=== PATIENT | male | born 1940 | race Caucasian/White ===

== ENCOUNTER → 2024-03-25 13:01 | Outpatient (REF) | payer OTHER, SELFPAY | LOC: RAD 13:01 | PROVIDERS: ATTENDING PHYSICIAN Surgery; FAMILY PHYSICIAN Internal Medicine | DX: N40.1 Benign prostatic hyperplasia with lower urinary tract symptoms (principal) | CPT/HCPCS: 76770 ==

== ENCOUNTER → 2025-03-01 13:10 | Outpatient (REF) | payer OTHER, SELFPAY | LOC: PAVMRI 13:10 | PROVIDERS: ATTENDING PHYSICIAN Neurological Surgery; FAMILY PHYSICIAN Internal Medicine | DX: G93.49 Other encephalopathy (principal) | CPT/HCPCS: 70553; A9575 ==

== ENCOUNTER → 2025-07-05 13:08 | Outpatient (REF) | payer OTHER, SELFPAY | LOC: RAD 13:08 | PROVIDERS: ATTENDING PHYSICIAN Surgery; FAMILY PHYSICIAN Internal Medicine | DX: N21.0 Calculus in bladder (principal) | CPT/HCPCS: 76770 ==

== ENCOUNTER 2025-07-05 21:17 | Inpatient (IN) | payer OTHER, SELFPAY ==
[2025-07-05] VITALS (11 sets, daily range): BP systolic 117–193; BP diastolic 72–136; BMI 31.0; BMI 29.6
[2025-07-05 16:19] LABS: Hematocrit 41.5 % (39.0-52.0); Hemoglobin 13.7 g/dL (13.0-18.0); Mean Corp Hgb Conc. 33.0 g/dL (33.0-37.0); Mean Corpuscular Volume 86.8 fL (80.0-94.0); Nucleated Red Blood Cells % 0 % (-); Platelet Count 235 10^3/uL (130-400); Red Cell Dist. Width 14.6 % (11.5-14.5)
[2025-07-05 16:26] LABS: INR 1.16; PT 15.1 Sec (11.4-14.6)
[2025-07-05 16:27] LABS: APTT 28.4 Sec (23.4-35.0)
[2025-07-05 16:39] LABS: ALT (SGPT) 22 U/L (0-50); AST (SGOT) 25 U/L (17-59); Albumin 4.5 g/dl (3.5-5.0); Alkaline Phosphatase 105 U/L (38-126); Blood Urea Nitrogen 14 mg/dl (9-20); Calcium 9.8 mg/dl (8.4-10.2); Carbon Dioxide 23 mmol/L (22-30); Chloride 106 mmol/L (98-107); Estimated Creatinine Clearance 71 ml/min; Glucose 135 mg/dl (70-99); Potassium 3.2 mmol/L (3.5-5.1); Sodium 140 mmol/L (135-145); Total Protein 6.8 g/dl (6.3-8.2); eGFR > 60.00
[2025-07-05 17:03] LABS: Urine Character Clear (Clear)
[2025-07-05 17:36] LABS: Urine White Cell 0-2 /HPF (0-5)
[2025-07-05] MEDS: CARDIZEM 20 MG IV (17:51)
--- NOTE | 2025-07-05 17:51 | ED.GENMED ---
History of Present Illness
<Vj Noyola MD, Resident - Last Filed: 07/05/25 20:19>
General
Chief Complaint: Weakness
Source: patient
Exam Limitations: none
Time Seen by Provider: 07/05/25 16:23
Travel History
Have you traveled to any high risk areas for coronavirus over the past 14 days?: No
Have you had any contact with someone who has COVID-19?: No
History of Present Illness
History of Present Illness:
Mr. De La Torre is an 84-year-old male with HTN, A-fib, brain tumor (getting follow-up regularly), constipation, anxiety, depression, and bilateral hearing impairment who presents from home via ambulance for ongoing leg weakness and an episode of SOB on
exertion with dizziness that occurred around 11 AM this morning. He states that this morning around 11 AM/12 PM, he was walking with his walker when he started to feel short of breath and dizzy. Around this time, he felt that his knees were bending
beneath him, with right leg weakness greater than left. He denies chest pain, syncope, fall, recent infection, palpitations, sweating, N/V, or vision changes. He states that he sat down and took in longer breaths which relieved him. He decided to
come into the ED later today via ambulance as he was worried about what was going on. Of note, he is in A-fib with RVR on the monitor during the time of history collection. However, he denies any symptoms of SOB, palpitations, or dizziness while
at rest. He follows with Dr. Martínez for cardiology. This history was confirmed with his son via phone. Mr. De La Torre lives with his son and daughter at home. Family states that he is quite deconditioned and does not keep up with PT exercises nor
daily ambulation, despite them urging him to do so.
Past History
<Vj Noyola MD, Resident - Last Filed: 07/05/25 20:19>
Past History
ED Past Medical History: Arrthythmia, HTN, Hypercholesterolemia, Psychiatric (Anxiety) and Other (Chronic low back pain); Negative CAD, IDDM or NIDDM
ED Past Surgical History: None
Social History
Tobacco: Non-smoker
Alcohol: None
Drug: None
Personal:
Living: with family
Employment: Retired
Family History
Family History: Other (Noncontributory)
Review of Systems
<Vj Noyola MD, Resident - Last Filed: 07/05/25 20:19>
Review of Systems
Other source history: family (son, Rodrick)
Neurological: Reports weakness
Phy Exam
<Vj Noyola MD, Resident - Last Filed: 07/05/25 20:19>
General Physical Exam
General Presentation: well appearing and no apparent distress
General age: appears stated age
General Skin: warm
General Habitus: normal
General Mental: alert
ENT Exam
ENT Exam: EOMI
Cardiovascular Exam
Cardiovascular Exam: irregularly irregular and tachycardia (130-150s)
Pulmonary Exam
Pulmonary Exam: lungs clear and no respiratory distress
Gastrointestinal Exam
Gastrointestinal Exam: normal bowel sounds, non tender, soft and non distended
Neurological Exam
Neurological Exam: alert, oriented x3 and motor weakness (legs, bilaterally 3/5 strength)
Musculoskeletal Exam
Musculoskeletal Exam: full ROM and no edema
Skin Exam
Skin Exam: normal color and no rash
Course
<Vj Noyola MD, Resident - Last Filed: 07/05/25 20:19>
Orders/Labs/Results
Orders:
Orders
07/05/25 15:51
Electrocardiogram (*1) Urgent
Reason for Study: Fatigue / Weakness
EKG- Treatment ONCE
07/05/25 16:05
CMP [Comprehensive Metabolic Panel] Urgent
Complete Blood Count/With Diff Urgent
PT/INR [Prothrombin Time] Urgent
PTT Urgent
07/05/25 16:39
Urinalysis Reflex To Culture Urgent
Date Specimen was Collected: 07/05/25
Time Specimen was Collected: 16:27
Urine Microscopic Reflex Cult Urgent
07/05/25 17:28
Diltiazem HCl [Cardizem] 20 mg IV NOW STA
07/05/25 17:31
Diltiazem 125 mg/125 ml Nss [Cardizem] 125 mg in 125 ml IV NOW
Initial dose in mg/hr, then titrate:: 5
Titrate to keep:: Heart rate 80-100 bpm
Titrate by mg/hr:: 5 mg/hr
Frequency of titrations (minutes):: 15
Maximum dose in mg/hr:: 15
07/05/25 17:49
BMP [Basic Metabolic Panel] Urgent
BNP [NT-proBNP] Urgent
Magnesium Urgent
TSH Reflex To Free T4 Urgent
Comment: ADD ON
Troponin I Urgent
07/05/25 17:51
Potassium Chloride [KCl] 40 meq PO NOW STA
07/05/25 18:25
Electrocardiogram (*1) Urgent
Reason for Study: Bradycardia / Tachycardia
EKG- Treatment ONCE
07/05/25 18:48
Electrocardiogram (*1) Urgent
Reason for Study: Palpitations
EKG- Treatment ONCE
07/05/25 19:03
CR Chest - 2 Views Urgent
Comment:
Reason For Exam: sob
07/05/25 20:45
Admit/Transfer Patient As Directed
Co-Sign Provider:
Level of Care: Inpatient admission
Assign to:: IVU
Physician / Group: Mario Alberto
Diagnosis: A-Fib
Reason for Hospitalization: Cardizem drip
Expected length of stay greater than two midnights?: Yes
ELOS- Estimated Length of Stay in days: 3
I certify the patient meets the requirements for IP care: Yes
PRN Pain Medication Management As Directed
May give lesser potent ordered pain med per pt: Yes
preference::
Protocol:: Medication orders for pain may be administered in a
manner that supports deferring to patient preference
when the pt is:
- Requesting an ordered lesser potent pain medication.
Least to most potent pain medications are defined
as: acetaminophen < NSAID < tramadol < opioids
(morphine, oxycodone, hydromorphone).
- Requesting a lesser dose of the same medication IF
ORDERED.
- Requesting a less intrusive route of administration
if both routes are prescribed by the provider (PO <
IV).
07/05/25 20:48
Code Status As Directed
Resuscitation Status: Full Code
07/05/25 20:52
Add On- LAB Urgent
Tests Added?: TSH w/Reflex, Magnesium
Abnormal Lab Results
07/05/25 07/05/25 07/05/25
16:05 16:39 17:49
WBC 13.1 H 10^3/uL
(4.8-10.8)
RDW 14.6 H %
(11.5-14.5)
Abs Immat Gran (auto) 0.1 H 10^3/uL
(0-0.05)
Absolute Neuts (auto) 10.4 H 10^3/uL
(1.4-6.5)
Absolute Monos (auto) 0.8 H 10^3/uL
(0.1-0.6)
Neutrophils % 79.6 H %
(42.2-75.2)
Lymphocytes % 12.4 L %
(20.5-51.1)
PT 15.1 H Sec
(11.4-14.6)
Potassium 3.2 L mmol/L 3.2 L mmol/L
(3.5-5.1) (3.5-5.1)
Glucose 135 H mg/dl 119 H mg/dl
(70-99) (70-99)
Ur Occult Blood Reflex 2+ A
(Negative)
Urine RBC 7-10 A /HPF
(0-2)
Urine Bacteria (Reflex) Few A
(Negative)
Urine Albumin (Reflex) 2+ A
(Neg - Trace)
07/05/25 16:05
07/05/25 17:49
Vital Signs
Initial and Last Documented VS:
Initial Vital Signs
Temp Pulse Resp BP Pulse Ox
98.2 F 81 18 119/84 96
07/05/25 15:45 07/05/25 15:45 07/05/25 15:45 07/05/25 15:45 07/05/25 15:45
Last Documented Vital Signs
Temp Pulse Resp BP Pulse Ox
98.2 F 87 24 134/87 96
07/05/25 15:45 07/05/25 21:01 07/05/25 21:01 07/05/25 20:00 07/05/25 21:01
Beatalt;Soham Hahn, DO - Last Filed: 07/05/25 21:30>
Orders/Labs/Results
Orders:
Orders
07/05/25 15:51
Electrocardiogram (*1) Urgent
Reason for Study: Fatigue / Weakness
EKG- Treatment ONCE
07/05/25 16:05
CMP [Comprehensive Metabolic Panel] Urgent
Complete Blood Count/With Diff Urgent
PT/INR [Prothrombin Time] Urgent
PTT Urgent
07/05/25 16:39
Urinalysis Reflex To Culture Urgent
Date Specimen was Collected: 07/05/25
Time Specimen was Collected: 16:27
Urine Microscopic Reflex Cult Urgent
07/05/25 17:28
Diltiazem HCl [Cardizem] 20 mg IV NOW STA
07/05/25 17:31
Diltiazem 125 mg/125 ml Nss [Cardizem] 125 mg in 125 ml IV NOW
Initial dose in mg/hr, then titrate:: 5
Titrate to keep:: Heart rate 80-100 bpm
Titrate by mg/hr:: 5 mg/hr
Frequency of titrations (minutes):: 15
Maximum dose in mg/hr:: 15
07/05/25 17:49
BMP [Basic Metabolic Panel] Urgent
BNP [NT-proBNP] Urgent
Magnesium Urgent
TSH Reflex To Free T4 Urgent
Comment: ADD ON
Troponin I Urgent
07/05/25 17:51
Potassium Chloride [KCl] 40 meq PO NOW STA
07/05/25 18:25
Electrocardiogram (*1) Urgent
Reason for Study: Bradycardia / Tachycardia
EKG- Treatment ONCE
07/05/25 18:48
Electrocardiogram (*1) Urgent
Reason for Study: Palpitations
EKG- Treatment ONCE
07/05/25 19:03
CR Chest - 2 Views Urgent
Comment:
Reason For Exam: sob
07/05/25 20:45
Admit/Transfer Patient As Directed
Co-Sign Provider:
Level of Care: Inpatient admission
Assign to:: IVU
Physician / Group: Mario Alberto
Diagnosis: A-Fib
Reason for Hospitalization: Cardizem drip
Expected length of stay greater than two midnights?: Yes
ELOS- Estimated Length of Stay in days: 3
I certify the patient meets the requirements for IP care: Yes
PRN Pain Medication Management As Directed
May give lesser potent ordered pain med per pt: Yes
preference::
Protocol:: Medication orders for pain may be administered in a
manner that supports deferring to patient preference
when the pt is:
- Requesting an ordered lesser potent pain medication.
Least to most potent pain medications are defined
as: acetaminophen < NSAID < tramadol < opioids
(morphine, oxycodone, hydromorphone).
- Requesting a lesser dose of the same medication IF
ORDERED.
- Requesting a less intrusive route of administration
if both routes are prescribed by the provider (PO <
IV).
07/05/25 20:48
Code Status As Directed
Resuscitation Status: Full Code
07/05/25 20:52
Add On- LAB Urgent
Tests Added?: TSH w/Reflex, Magnesium
Abnormal Lab Results
07/05/25 07/05/25 07/05/25
16:05 16:39 17:49
WBC 13.1 H 10^3/uL
(4.8-10.8)
RDW 14.6 H %
(11.5-14.5)
Abs Immat Gran (auto) 0.1 H 10^3/uL
(0-0.05)
Absolute Neuts (auto) 10.4 H 10^3/uL
(1.4-6.5)
Absolute Monos (auto) 0.8 H 10^3/uL
(0.1-0.6)
Neutrophils % 79.6 H %
(42.2-75.2)
Lymphocytes % 12.4 L %
(20.5-51.1)
PT 15.1 H Sec
(11.4-14.6)
Potassium 3.2 L mmol/L 3.2 L mmol/L
(3.5-5.1) (3.5-5.1)
Glucose 135 H mg/dl 119 H mg/dl
(70-99) (70-99)
Ur Occult Blood Reflex 2+ A
(Negative)
Urine RBC 7-10 A /HPF
(0-2)
Urine Bacteria (Reflex) Few A
(Negative)
Urine Albumin (Reflex) 2+ A
(Neg - Trace)
07/05/25 16:05
07/05/25 17:49
Vital Signs
Initial and Last Documented VS:
Initial Vital Signs
Temp Pulse Resp BP Pulse Ox
98.2 F 81 18 119/84 96
07/05/25 15:45 07/05/25 15:45 07/05/25 15:45 07/05/25 15:45 07/05/25 15:45
Last Documented Vital Signs
Temp Pulse Resp BP Pulse Ox
98.2 F 87 24 134/87 96
07/05/25 15:45 07/05/25 21:01 07/05/25 21:01 07/05/25 20:00 07/05/25 21:01
<Vj Noyola MD, Resident - Last Filed: 07/05/25 20:19>
MDM/Problems Addressed
Differential Diagnosis Includes:
A-fib w/ RVR
Deconditioning
CHF
Syncope
Electrolye Imbalance
MDM/Problems Addressed:
Mr. De La Torre is an 84-year-old male with HTN, A-fib, brain tumor (getting follow-up regularly), constipation, anxiety, depression, and bilateral hearing impairment who presents from home via ambulance for ongoing leg weakness and an episode of SOB on
exertion with dizziness that occurred around 11 AM this morning. He is in A-fib with RVR on the monitor during the time of history collection without current symptoms (SOB, palpitations, dizziness).
#A-Fib with RVR
#SOB on exertion
In the ED, HR 130s-150s and in A-Fib without symptoms. Follows with Dr. Martínez.
- Admit to hospitalist
- Consider inpatient cardiology consult
- Cardizem 20 mg IV bolus followed by Cardizem gtt per protocol
-- Follow up repeat EKG
- Home Metop 25mg daily, Eliquis 5mg BID, Amlodipine 5mg daily
- Follow up BNP, trop 0.021
- Follow up CXR
- Cardiac Diet
#Leg Weakness
#History of Falls
Possibly related to symptomatic episode of A-Fib w/ RVR. No concern for PE or trauma.
- Consider PT/OT and CM consult
- Bladder scan less than 200mls; UA unremarkable for infection
- Consider Orthostatic VS
- CTM BMP
#Hypokalemia
3.2 in ED
- s/p 40mEq KCl
- CTM
#Kidney Stone
#Hematuria
Renal US 07/05: Redemonstration of 4 cm bladder calculus. Bilateral renal cysts, detailed above. Probable 3 mm calculus within the lower pole of the left kidney.
- Continue outpatient follow-up as before
Chronic Problems:
#Depression
#Anxiety
- Buspar 15 mg BID
- Sertraline 100 mg BID
#HTN
- Lisinopril 20 mg
#GERD
- Omeprazole 20mg
#BPH
- Flomax 0.8 mg HS
- Finasteride 5 mg
#HLD
- Atorvastatin 20 mg
Chronic conditions affecting care: HTN and Arrhythmia (Afib)
<Vj Noyola MD, Resident - Last Filed: 07/05/25 20:19>
*Pulse Oximetry
SaO2: 94
Oxygen Mode of Delivery: Room air
Patient hypoxic: no
*Critical Care Note
Total Time (30-74mins, 75-104mins- exclusive of procedures): Not Applicable
ED Attending Note
<Vj Noyola MD, Resident - Last Filed: 07/05/25 20:19>
-
Portions of this chart may have been created with voice recognition software.� Occasional wrong word or��sound alike� substitutions may have occurred due to the inherent limitations of voice recognition software.
<Soham Hahn, DO - Last Filed: 07/05/25 21:30>
ED Attending Note
Patient seen and examined by attending physician: Yes
I performed a history and physical exam of patient and discussed management with resident, I reviewed resident's note and agree with documented findings and plan of care.: Yes
ED Attending Note:
I agree with Dr. Noyola's note
Patient presents to the emergency room from home due to weakness, shortness Of exertion. Evidently patient had poor appetite. He also has had some deconditioning over time since he completed a course of physical therapy at a SNF. Patient denies
any chest pain. No shortness of breath at the time my evaluation. This seems to be exertional. He believes he is compliant with his medication though his family gives it to him so he relies on them to make sure he is taking everything
General: Awake, Alert, Oriented X3. No acute distress. Appears somewhat disheveled, stated age
Vitals: unremarkable
Head: Atraumatic
Eyes: Pupils equal, EOMI
Throat: Airway intact, no exudates
Neck: Trachea midline
Lungs: Few crackles bilateral bases
Heart: Tachycardic, regular
Abd: Soft, Nontender, No pulsatile mass
Neuro: No focal weak
Skin: Warm, dry, no rash
Extremities: pulses equal b/l, trace edema
Patient presents with multiple complaints. His EKG shows atrial fibrillation with a rapid ventricular response. This very well may contribute to his shortness of breath. 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
periods of normal sinus rhythm. Given this on again off again nature of his dysrhythmia I do not believe cardioversion would be useful plus it is not 100% clear that he has been compliant with his Eliquis. Updated the risk of cardioversion here in
the emerged outweighs the potential benefit as he is likely not sustaining sinus rhythm even if we did cardiovert him. No evidence of overt heart failure. Patient started on Cardizem infusion after bolus. Patient will be admitted for rate
control, further cardiac evaluation
Discharge Plan
Departure
Patient Disposition: Admit
Date of Disposition: 07/05/25
Time of Disposition: 20:16
Admit to: Med/Surg
Presentation/result/management discussed w/ accepting MD/DO: Hospitalist
Discharge Problem:
Atrial fibrillation with rapid ventricular response, Failure to thrive in adult, Fall, Weakness of both legs
Interventions
Interventions:
*Risk Screen - Suicide Last Done: 07/05/25 16:30
*General Assessment Last Done: 07/05/25 16:30
*Neglect/Abuse Screening Last Done: 07/05/25 15:45
*ED- Fall Risk Assessment Last Done: 07/05/25 16:30
*ED COVID-19 Vaccine History Last Done: 07/05/25 16:30
ED- Cardiac Assessment Last Done: 07/05/25 16:30
ED- Neurological Assessment Last Done: 07/05/25 16:30
ED- Pulmonary Assessment Last Done: 07/05/25 16:30
[2025-07-05] MEDS: CARDIZEM 125 IV (18:01)
[2025-07-05] MEDS: KCL 40 MEQ PO (18:09)
[2025-07-05 18:30] LABS: Blood Urea Nitrogen 13 mg/dl (9-20); Calcium 9.8 mg/dl (8.4-10.2); Carbon Dioxide 24 mmol/L (22-30); Chloride 107 mmol/L (98-107); Estimated Creatinine Clearance 80 ml/min; Glucose 119 mg/dl (70-99); Potassium 3.2 mmol/L (3.5-5.1); Sodium 142 mmol/L (135-145); eGFR > 60.00
[2025-07-05 18:58] LABS: Troponin I 0.021 ng/ml
--- NOTE | 2025-07-05 20:22 | HPS.HSE ---
Addendum entered and electronically signed by Aroldo Llanes DO 07/05/25 21:36:
Patient seen and examined independently. Agree with findings and plan as set forth by Debbie Montenegro PA-C.
Patient is an 84y M with PMH significant for A-Fib, hypertension and BPH who presents to ED complaining of generalized weakness, fatigue and dyspnea with activity. He had no specific chest pain, palpitations, etc. Patient presented to the ED
for evaluation and was noted in be in A-Fib with rates into the 150s. He was started on Cardizem in the ED and had several periods of sinus rhythm - but repeatedly returned to A-Fib with variable rates.
At the time of my exam patient is resting comfortably. He is currently in sinus rhythm in the 80s.
Ass:
Paroxysmal Atrial Fibrillation with Rapid Ventricular Response
Prolonged QT
Hypokalemia
benign Hypertension
Anxiety / Depression
BPH
Plan:
Admit for further evaluation and treatment.
Continue IV diltiazem infusion overnight as heart rate / BP allows.
Monitor on telemetry.
Continue Eliquis for stroke risk reduction.
Cardiology evaluation in the AM for additional recommendations.
Continue other usual home medications.
PT eval.
Original Note:
Family Physician
-
Family Physician: NOT KNOW UNKNOWN - PT DOES
Chief Complaint
-
Weakness
History of Present Illness
Patient is an 84 y/o male past medical history of atrial fibrillation on Eliquis, hypertension, hyperlipidemia, anxiety, and BPH who presents with weakness and dyspnea on exertion. Patient reports he was attempting to ambulate with his rollator,
and started to feel a little dizzy and shortness. He sat down to rest and symptoms improved. He states he didn't eat anything today. He came to the emergency department for evaluation due to the symptoms. While in the emergency department
patient was found to have episodes of atrial fibrillation with rapid ventricular response.
Medical History
Past Medical History
Past Medical History: Reports Other
Additional Past Medical History:
Paroxysmal Atrial Fibrillation
Essential Hypertension
Hyperlipidemia
Anxiety / Depression
BPH
Spinal Stenosis
Brain Mass: Low-Grade Glioma
Past Surgical History: Reports Other
Additional Past Surgical History:
Fatty Tumor Resection from Back
Social History
Tobacco: Non-smoker
Family History
Family History: Not pertinent
Allergies / Home Medications
Allergies reflects when Allergies were last updated in [employer].
Home Medications with original date entered in [employer]
Allergy/Medication List:
Allergies
Allergy/AdvReac Type Severity Reaction Status Date / Time
Penicillins Allergy Hives, Verified 06/01/22 12:25
Itchy
Home Medications
sertraline 100 mg tablet 100 mg PO BID Depression 01/18/11
atorvastatin 20 mg tablet 20 mg PO DAILY High cholesterol 04/05/20
omeprazole 20 mg capsule,delayed release 20 mg PO DAILY Gastrointestinal issue 04/05/20
buspirone 15 mg tablet 15 mg PO BID 05/30/22
tamsulosin 0.4 mg capsule 0.8 mg PO HS 05/30/22
apixaban 5 mg tablet (Eliquis) 5 mg PO BID 07/24/23
lisinopril 20 mg tablet 20 mg PO DAILY 07/24/23
amlodipine 5 mg tablet (Norvasc) 5 mg PO DAILY 07/05/25
finasteride 5 mg tablet 5 mg PO DAILY 07/05/25
Review of Systems
-
A 12 point ROS was completed and negative except as noted: Yes
Constitutional: Denies Fever or Chills
Respiratory: Denies Cough
Cardiac: Denies Chest Pain or Palpitations
Abdomen/GI: Denies Abdominal Pain, Nausea, Vomiting or Diarrhea
Physical Exam
Vital Signs
Vital Signs
Temp Pulse Resp BP Pulse Ox
98.2 F 147 25 138/86 94
07/05/25 15:45 07/05/25 17:51 07/05/25 16:30 07/05/25 17:51 07/05/25 17:57
Physical Exam
General: Comfortable and Conversant
HEENT: Anicteric and Moist mucous membranes
Respiratory: Clear and Non Labored Respirations
Cardiac: S1/S2 and Regular Rhythm
GI: Soft and Non Tender
Rectal: Deferred by Provider
Musculoskeletal: No Clubbing, No Cyanosis and No Edema
Skin: Warm and Dry
Neuro: Awake, Alert, Oriented and Nonfocal/grossly intact
Psych: Calm
Laboratory Results
-
07/05/25 16:05
07/05/25 17:49
Laboratory Results
PT 15.1 Sec (11.4-14.6) H 07/05/25 16:05
INR 1.16 07/05/25 16:05
APTT 28.4 Sec (23.4-35.0) 07/05/25 16:05
Total Bilirubin 0.6 mg/dl (0.2-1.3) 07/05/25 16:05
AST 25 U/L (17-59) 07/05/25 16:05
ALT 22 U/L (0-50) 07/05/25 16:05
Alkaline Phosphatase 105 U/L (38-126) 07/05/25 16:05
Troponin I 0.021 ng/ml 07/05/25 17:49
Data Reviewed
-
Lab Data: Labs Reviewed by me
Impression/Plan
-
Paroxysmal Atrial Fibrillation - Patient with episodes of rapid ventricular response in the emergency department
-Patient placed on Cardizem drip - During my evaluation patient in normal sinus rhythm however previous attempt to stop Cardizem drip failed
-Continue Cardizem drip
-Continue Eliquis
-Consult Cardiology
Prolonged QT
-Avoid QT prolonging medications
-Replace electrolytes
-Recheck ECG in AM
Hypokalemia
-Replace potassium
-Check magnesium level
Essential Hypertension
-Continue amlodipine and lisinopril with hold parameters
Hyperlipidemia
-Continue atorvastatin
Anxiety / Depression
-Continue buspirone and sertraline
BPH
-Continue finasteride and tamsulosin
DVT proph:Loren
Code Status: Full Code
[2025-07-05 21:36] LABS: Magnesium 1.9 mg/dl (1.6-2.3)
[2025-07-05] MEDS: FLOMAX 0.8 MG PO (23:46)
[2025-07-05] MEDS: TYLENOL 650 MG PO (23:59)
[2025-07-06] VITALS (17 sets, daily range): BP systolic 109–159; BP diastolic 69–101; PULSE 94; O2SAT 97; BMI 29.5
--- NOTE | 2025-07-06 00:38 | PTCARENOTE ---
Pt. rec'd from ED into room 9830 AAOx3, VSS, A-fib on the monitor with resting rate 80's-90's, up to 140's with activity. Cardizem gtt infusing at 5 mg/hr. Generally weak, needs assist x 2 & RW to stand. Some GORDON assessed, lungs CTA with pulse ox
96% RA. Pt. oriented to room and plan of care, understanding verbalized. Bed alarm placed for safety - pt. already attempted to stand without assist to use urinal. Currently resting quietly.
[2025-07-06] MEDS: ELIQUIS 5 MG PO ×3 (00:46→21:06)
--- NOTE | 2025-07-06 01:34 | PTCARENOTE ---
Pt. noted to be going in and out of A-fib rate 80's-low 100's , BP stable 133/69. Cardizem continues at 5 mg/hr.
[2025-07-06 03:12] LABS: Hematocrit 37.7 % (39.0-52.0); Hemoglobin 12.7 g/dL (13.0-18.0); Mean Corp Hgb Conc. 33.7 g/dL (33.0-37.0); Mean Corpuscular Volume 86.9 fL (80.0-94.0); Platelet Count 180 10^3/uL (130-400); Red Cell Dist. Width 14.7 % (11.5-14.5)
[2025-07-06 03:13] LABS: Blood Urea Nitrogen 15 mg/dl (9-20); Calcium 10.3 mg/dl (8.4-10.2); Carbon Dioxide 25 mmol/L (22-30); Chloride 110 mmol/L (98-107); Estimated Creatinine Clearance 80 ml/min; Glucose 116 mg/dl (70-99); Magnesium 2.0 mg/dl (1.6-2.3); Potassium 4.1 mmol/L (3.5-5.1); Sodium 143 mmol/L (135-145); eGFR > 60.00
--- NOTE | 2025-07-06 07:41 | W.PN.HOSP.TC ---
Today's Communication/Plan
-
Continue newly started Amiodarone, wean off Cardizem
Assessment / Plan
Assessment / Plan
Physical Exam
General: Comfortable and Conversant
HEENT: Anicteric and Moist mucous membranes
Respiratory: Clear and Non Labored Respirations
Cardiac: S1/S2 and Regular Rhythm
GI: Soft and Non Tender
Rectal: Deferred by Provider
Musculoskeletal: No Clubbing, No Cyanosis and No Edema
Skin: Warm and Dry
Neuro: Awake, Alert, Oriented and Nonfocal/grossly intact
Psych: Calm
Assessment/Plan
84 y/o male past medical history of atrial fibrillation on Eliquis, hypertension, hyperlipidemia, anxiety, and BPH who presents with generalized weakness, fatigue and dyspnea on exertion. Patient reports he was attempting to ambulate with his
rollator, and started to feel a little dizzy and shortness of breath. He sat down to rest and symptoms improved. He states he didn't eat anything on 07/05/25. He came to the emergency department for evaluation due to the symptoms. While in the
emergency department patient was found to have episodes of atrial fibrillation with rapid ventricular response. He was started on Cardizem in the ED and had several periods of sinus rhythm - but repeatedly returned to A-Fib with variable rates.
Paroxysmal Atrial Fibrillation - Patient with episodes of rapid ventricular response in the emergency department
Atrial tachycardia episodes
-Patient placed on Cardizem drip - During my evaluation patient in normal sinus rhythm however previous attempt to stop Cardizem drip failed
-Continue Cardizem drip
-Continue Eliquis
-Start Amiodarone
-Consult Cardiology
-Continue to monitor in IVU
Prolonged QT
-Avoid QT prolonging medications
-Replace electrolytes
-Recheck ECG in AM
Hypokalemia
-Replace potassium
-Check magnesium level
Significant R knee pain during ambulation on 07/06/25
-Patient stated history of fall with prolonged hyperflexion event
-Will consider right knee x-ray
Essential Hypertension
-Continue amlodipine and lisinopril with hold parameters
Hyperlipidemia
-Continue atorvastatin
Anxiety / Depression
-Continue buspirone and sertraline
BPH
-Continue finasteride and tamsulosin
History of laminectomy
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
Mild aortic regurgitation
DVT proph:Eliquis
Code Status: Full Code
Anticipated Discharge: 24 - 48 hours
Subjective/Interval History
-
Date of Service: July 06, 2025
Patient was seen and examined. He denied any chest pain, SOB or any other complaints.
Objective Data
-
Labs:
Laboratory Results
07/06/25
02:29
WBC 11.2 H
Hgb 12.7 L
Hct 37.7 L
Plt Count 180 D
Sodium 143
Potassium 4.1 D
Chloride 110 H
Carbon Dioxide 25
BUN 15
Creatinine 0.7
Glucose 116 H
Calcium 10.3 H
Vital Signs:
Vital Signs
Temp Pulse Resp BP Pulse Ox
99.4 F 114 17 109/75 96
07/06/25 07:39 07/06/25 07:39 07/06/25 07:39 07/06/25 04:00 07/06/25 07:39
I&O
07/05/25 07/06/25 07/07/25
06:59 06:59 06:59
Output Total 600 / 600
Balance -600 / -600
--- NOTE | 2025-07-06 07:47 | CON.CAR ---
Addendum entered and electronically signed by Beny Oconnor MD 07/06/25 11:57:
84-year-old man with PAF admitted with AF and rapid ventricular response, converted to sinus rhythm with IV diltiazem and intermittently with A-fib thereafter.
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
Current meds atorvastatin 20 mg a day, BuSpar 15 twice daily, apixaban 5 mg twice daily, Proscar 5 mg daily, lisinopril 20 mg a day, amlodipine 5 mg daily, pantoprazole 40 mg a day, sertraline 100 mg twice daily, tamsulosin 0.8 mg a day
147/91, pulse 110, respiratory rate 18, afebrile, head neck exam unremarkable, lungs are clear, regular rate and rhythm without obvious murmurs or gallops, no edema, current telemetry possibly atrial tachycardia rate 110
ECG: Atypical atrial flutter/rapid atrial tachycardia with variable conduction, Subsequently sinus rhythm with first-degree AV block
Chest x-ray: Poor inspiration
Hemoglobin 12.7, white count is 11.2, BUN/creatinine are 15 and 0.7, potassium 4.1, proBNP is 403, troponin is 0.021
Impression:
Paroxysmal atrial fibrillation/flutter/atrial tachycardia
Hypertension
Hyperlipidemia
History of laminectomy
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
Mild aortic regurgitation
Plan:
He presents with recurrence atrial arrhythmia with a rapid ventricular response, weakness, dizziness and shortness of breath.
Currently he is back in atrial tachycardia at a slow rates.
Will await echocardiogram. EF was preserved by echo in 2023 with mild aortic regurgitation.
.
Would not pursue troponin further, likely benign ischemic myocardial injury related to atrial arrhythmia.
Continue anticoagulation.
Will initiate amiodarone therapy.
If does well, hopefully for discharge in 24 to 48 hours.
Original Note:
Consultation
Consultation Request
Date/Time Consultation Performed: 07/06/25
Requesting Provider: Dr. Golden
Performing Provider: Mara Max PA-C for Dr. Oconnor
Reason for Consultation: afib
Medical History
-
Chief Complaint: weakness
History of Present Illness:
Patient is an 84-year-old male with past medical history of paroxysmal atrial fibrillation on chronic anticoagulation with Eliquis, hypertension, hyperlipidemia, aortic valve insufficiency, spinal stenosis with history of laminectomy in 2012, kidney
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 He lives independently with his son and daughter. Was ambulating with his walker yesterday morning and complained of
shortness of breath and dizziness with associated bilateral lower extremity weakness. Denies chest pain, palpitations, or any symptoms at rest. On arrival to ER, patient was noted to be in A-fib with RVR. He was started on IV Cardizem and has
been in and out of atrial fibrillation since admission. Reports compliance with Eliquis as an outpatient.
PMH:
PAF
Chronic OAC with eliquis
HTN
HLD
AI
Spinal stenosis s/p laminectomy 2012
History of kidney stone
Suspected low grade glioma by MRI
[facility] [place]
Past Medical History
Past Medical History: Other (in HPI)
Social History
Tobacco: Non-Smoker
Alcohol: None
Living: With Family
Family History
Family History: Unable to Obtain
Allergies / Home Medications
Allergy/AdvReac Type Severity Reaction Status Date / Time
Penicillins Allergy Hives, Verified 06/01/22 12:25
Itchy
�Medication �Instructions �Recorded �Confirmed �Type
sertraline 100 mg tablet 100 mg PO BID Depression 01/18/11 07/05/25 History
atorvastatin 20 mg tablet 20 mg PO DAILY High cholesterol 04/05/20 07/05/25 History
omeprazole 20 mg capsule,delayed 20 mg PO DAILY Gastrointestinal 04/05/20 07/05/25 History
release issue
buspirone 15 mg tablet 15 mg PO BID 05/30/22 07/05/25 History
tamsulosin 0.4 mg capsule 0.8 mg PO HS 05/30/22 07/05/25 History
apixaban 5 mg tablet (Eliquis) 5 mg PO BID 07/24/23 07/05/25 History
lisinopril 20 mg tablet 20 mg PO DAILY 07/24/23 07/05/25 History
amlodipine 5 mg tablet (Norvasc) 5 mg PO DAILY 07/05/25 07/05/25 History
finasteride 5 mg tablet 5 mg PO DAILY 07/05/25 07/05/25 History
Review of Systems
-
History Source: Patient
All other systems: Negative unless noted
Physical Exam
Vital Signs
Temp Pulse Resp BP Pulse Ox
99.4 F 114 17 109/75 96
07/06/25 07:39 07/06/25 07:39 07/06/25 07:39 07/06/25 04:00 07/06/25 07:39
Lab Results
07/06/25 02:29
07/06/25 02:29
Troponin I 0.021 ng/ml 07/05/25 17:49
Aly-A-Uihuqfkgwbp Pept 403 pg/ml 07/05/25 17:49
Physical Exam
General: No Apparent Distress and Comfortable
HEENT: Normocephalic, Anicteric and Moist Mucous Membranes
Respiratory: Clear and Non Labored Respirations
Cardiac: S1/S2 and Irregular Rhythm
GI: Soft, Non Tender, Non Distended and Normal Bowel Sounds
Musculoskeletal: No Clubbing, No Cyanosis and No Edema
Skin: Warm and Dry
Neuro: AO x 3
Impression / Plan
-
Primary Heater Tender: Dr. Roberts
Assessment:
Presentation with weakness, dizziness
GORDON
Atrial fibrillation with RVR, paroxysmal
Hypokalemia
Leukocytosis
PAF
Chronic OAC with eliquis
HTN
HLD
AI
Spinal stenosis s/p laminectomy 2012
History of kidney stone
Suspected low grade glioma by MRI
[facility] [place]
ECHO 11/13/23: EF 60%, no regional wall motion abnormalities, mild concentric LVH, mild AR, trace TR, PAP 30 mmHg
Plan:
-Patient presents with weakness and feeling SOB and dizzy with ambulation. Noted to be in afib with RVR, which appears paroxysmal since admission
-currently on IV cardizem @5, will wean off in next 24 hours
-given paroxysmal nature of afib since admission, would plan to initiate amiodarone 400mg po TID. follow QTc
-continue eliquis
-check echo, last from 2023 with results as above
-TSH WNL
-K repleted
-no evidence by review of CXR or proBNP for acute CHF.
-check ortho VS
-PT eval
Data Reviewed
-
EKG: Tracing Personally Visualized and interpreted
Radiology: Report Reviewed by me
Medical Tests (Nuc Med, Echo etc): Report Reviewed by me
Labs: Labs Reviewed by me
Old Records: Reviewed
[2025-07-06] MEDS: ZOLOFT 100 MG PO ×2 (09:05→21:06)
[2025-07-06] MEDS: NORVASC 5 MG PO (09:06)
[2025-07-06] MEDS: PROTONIX 40 MG PO (09:06)
[2025-07-06] MEDS: PROSCAR 5 MG PO (09:06)
[2025-07-06] MEDS: LIPITOR 20 MG PO (09:06)
[2025-07-06] MEDS: PACERONE 400 MG PO ×3 (09:06→22:46)
[2025-07-06] MEDS: ZESTRIL 20 MG PO (09:06)
[2025-07-06] MEDS: BUSPAR 15 MG PO ×2 (09:07→21:06)
--- NOTE | 2025-07-06 09:15 | PTCARENOTE ---
Assumed care of pt from dayshift RN. Walking rounds completed. Pt resting in bed. AAOx3. Appropriate. A-fib on the tele monitor. HR 100s. BP stable. Palpable pulses throughout. No edema noted. Pt on RA. POX 96%. Lung sounds audible b/l. Deep
breathing encouraged. Pt slightly dyspneic w/ exertion in bed. Abdomen nontender. +BS x4. Pt voiding w/o issue. Pt w/ intermittent knee pain. Pt reports feeling weak and a fear of falling. PIV x1 intact. Cardizem infusing as ordered. Pt updated w/
plan and repositioned in bed. See worklist for full nursing assessment and interventions. Call ross within reach.
[2025-07-06] MEDS: CARDIZEM 125 IV (15:02)
--- NOTE | 2025-07-06 16:01 | CM ---
Addendum entered by Ryann Mcclelland 07/06/25 16:32:
PT recomm SNF , spoke with pt, referral [facility] to [facility], await bed avail
Original Note:
spoke tp pt in room, he lives with his son and DIL in a 2 story home with 3 steps to enter. he uses a cane and a walker/rollator at home. PT/OT to eval for skilled needs. . dc plan to be determ.
[2025-07-06] MEDS: FLOMAX 0.8 MG PO (22:46)
--- NOTE | 2025-07-06 23:28 | PTCARENOTE ---
Received pt at change of shift resting in bed. SR w/ 1st degree AVB, HR in the 70's. Cardizem gtt infusing at 5 mL/hr. Sergo Shane, STOCK CRANE OPERATOR made aware of HR and upcoming renewal date/time of Cardizem. Instructed RN to turn infusion off. pt denies
any CP. pt GORDON, sating 93%. Fall risk precautions maintained, bed alarm on and audible. Encouraged pt to call RN for assistance OOB. Call ross within reach.
[2025-07-07] VITALS (8 sets, daily range): BP systolic 99–159; BP diastolic 65–92; BMI 29.5
[2025-07-07 05:18] LABS: Hematocrit 36.0 % (39.0-52.0); Hemoglobin 12.1 g/dL (13.0-18.0); Mean Corp Hgb Conc. 33.6 g/dL (33.0-37.0); Mean Corpuscular Volume 88.7 fL (80.0-94.0); Platelet Count 167 10^3/uL (130-400); Red Cell Dist. Width 14.7 % (11.5-14.5)
[2025-07-07 05:51] LABS: ALT (SGPT) 23 U/L (0-50); AST (SGOT) 28 U/L (17-59); Albumin 3.9 g/dl (3.5-5.0); Alkaline Phosphatase 78 U/L (38-126); Blood Urea Nitrogen 19 mg/dl (9-20); Calcium 10.0 mg/dl (8.4-10.2); Carbon Dioxide 25 mmol/L (22-30); Chloride 109 mmol/L (98-107); Estimated Creatinine Clearance 80 ml/min; Glucose 110 mg/dl (70-99); Magnesium 2.0 mg/dl (1.6-2.3); Potassium 3.4 mmol/L (3.5-5.1); Sodium 140 mmol/L (135-145); Total Protein 6.1 g/dl (6.3-8.2); eGFR > 60.00
--- NOTE | 2025-07-07 07:58 | W.PN.HOSP.TC ---
Today's Communication/Plan
-
I discussed with case management: [facility] cannot take patient today, they can maybe take him tomorrow, but they said it will probably be Saturday but they'll know for sure tomorrow
Continue Amiodarone
AM Labs
EKG to check QTc in the morning
Replaced potassium
Assessment / Plan
Assessment / Plan
Physical Exam
General: Comfortable and Conversant
HEENT: Normocephalic. Moist mucous membranes
Respiratory: Clear to Auscultation Bilaterally
Cardiac: S1/S2 and Regular Rhythm
GI: Soft and Non Tender. Positive bowel sounds.
Musculoskeletal: No Cyanosis and No Edema. RT Knee flexion and extension intact. RT knee area without any erythema or swelling. Mild tenderness on the lateral aspect of the right knee. RLE neurovascularly intact distally.
Skin: Warm and Dry
Neuro: Awake, Alert, Oriented and Nonfocal/grossly intact
Psych: Calm
Assessment/Plan
84 y/o male past medical history of atrial fibrillation on Eliquis, hypertension, hyperlipidemia, anxiety, and BPH who presents with generalized weakness, fatigue and dyspnea on exertion. Patient reports he was attempting to ambulate with his
rollator, and started to feel a little dizzy and shortness of breath. He sat down to rest and symptoms improved. He states he didn't eat anything on 07/05/25. He came to the emergency department for evaluation due to the symptoms. While in the
emergency department patient was found to have episodes of atrial fibrillation with rapid ventricular response. He was started on Cardizem in the ED and had several periods of sinus rhythm - but repeatedly returned to A-Fib with variable rates.
Paroxysmal Atrial Fibrillation - patient with episodes of rapid ventricular response in the emergency department
Atrial tachycardia episodes
-Patient placed on Cardizem drip - During my evaluation patient in normal sinus rhythm however previous attempt to stop Cardizem drip failed
-Cardizem drip recently weaned off
-Continue Eliquis
-Continue newly started Amiodarone: patient was started on Amiodarone 400mg TID and has maintained sinus rhythm since 07/06/25 -- transition Amiodarone to 200mg BID for 4 weeks, then decrease
to 200mg daily upon discharge
-Continue to monitor QTc
-Consult Cardiology
-Continue to monitor in IVU
Prolonged QTc
-Avoid QT prolonging medications
-Replace electrolytes
-Recheck ECG
Hypokalemia
-Replace potassium
-Magnesium normal
Significant R knee pain during ambulation on 07/06/25
-Patient stated history of fall with prolonged hyperflexion event
-Right knee x-ray
-Curbside consulted (not full/formal consult) orthopedic surgeon Dr. Nicolas (orthopedics) -- patient can be followed up outpatient
Essential Hypertension
-Continue amlodipine and lisinopril with hold parameters
Hyperlipidemia
-Continue atorvastatin
Anxiety / Depression
-Continue buspirone and sertraline
BPH
-Continue finasteride and tamsulosin
History of laminectomy
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
Mild aortic regurgitation
DVT Prophylaxis: Eliquis
Disposition: Per my discussion with business case analyst Ryann Mcclelland on 07/07/25, [facility] can take him, but they cannot take him on 07/07/25, and they're not sure they can do it tomorrow they said it will probably be Saturday but they'll know for sure
tomorrow.
Code Status: Full Code
Anticipated Discharge: 24 - 48 hours
Subjective/Interval History
-
Date of Service: July 07, 2025
Patient was seen and examined. He denied any chest pain or shortness of breath.
Objective Data
-
Labs:
Laboratory Results
07/07/25
04:57
WBC 9.1
Hgb 12.1 L
Hct 36.0 L
Plt Count 167
Sodium 140
Potassium 3.4 L
Chloride 109 H
Carbon Dioxide 25
BUN 19
Creatinine 0.7
Glucose 110 H
Calcium 10.0
Total Bilirubin 0.8
AST 28
ALT 23
Alkaline Phosphatase 78
Vital Signs:
Vital Signs
Temp Pulse Resp BP Pulse Ox
98.0 F 70 18 152/78 94
07/07/25 06:59 07/07/25 06:00 07/07/25 06:59 07/07/25 04:46 07/07/25 06:59
I&O
07/06/25 07/07/25 07/08/25
06:59 06:59 06:59
Intake Total 110 / 110
Output Total 600 / 600 550 / 550 150 / 150
Balance -600 / -600 -440 / -440 -150 / -150
[2025-07-07] MEDS: ZESTRIL 20 MG PO (08:04)
[2025-07-07] MEDS: ZOLOFT 100 MG PO ×2 (08:04→20:24)
[2025-07-07] MEDS: LIPITOR 20 MG PO (08:04)
[2025-07-07] MEDS: BUSPAR 15 MG PO ×2 (08:04→20:24)
[2025-07-07] MEDS: PROSCAR 5 MG PO (08:04)
[2025-07-07] MEDS: ELIQUIS 5 MG PO ×2 (08:04→20:24)
[2025-07-07] MEDS: PACERONE 400 MG PO ×3 (08:04→22:23)
[2025-07-07] MEDS: NORVASC 5 MG PO (08:04)
[2025-07-07] MEDS: PROTONIX 40 MG PO (08:04)
--- NOTE | 2025-07-07 08:10 | PTCARENOTE ---
Assumed care of pt from dayshift RN. Pt oriented to person, place, and time. Pt impulsive at times but easily reoriented. Bed/chair alarm on. Pt is SR w/ 1st degree heart block on the tele monitor. HR 80s. BP stable. Palpable pulses throughout. Pt
on RA. POX 94%. Dyspneic w/ activity. Deep breathing encouraged. Abdomen round. Nontender. +BS x4. No void for this RN. PIV x1 intact. Pt c/o right knee pain when pressure applied. No redness, warmth, or swelling noted. X-ray ordered by hospitalist.
Pt weak. 2x assist w/ walker to pivot short distance. Pt updated w/ plan. See worklist for full nursing assessment and interventions. Call ross within reach.
--- NOTE | 2025-07-07 08:38 | W.PN.CARDCBS ---
Addendum entered and electronically signed by Chelo Rey DO 07/07/25 18:23:
I saw and examined the patient.
The Set And Exhibit Designer's note was reviewed and I agree with the note.
Comment: Patient seen and examined sitting out of bed to chair eating. He has just returned from knee x-rays, reports are pending. Denies chest pain or pressure. Denies palpitations. Denies shortness
GEN: No distress, awake, alert, oriented x3
HEENT: smmm
LUNGS: CTA B/L, no wheezes/rales
CV: Reg, S1/S2, 1/6 syst LSB
ABD: soft, BS+, NT/ND
EXT: No cyanosis, clubbing, edema
Plan:
History of paroxysmal atrial fibrillation presented with weakness found to be in rapid atrial fibrillation status post conversion to sinus rhythm
- Continue amiodarone load: 200 mg twice daily for 4 weeks then decrease to 200 mg daily
- Continue Eliquis
- Outpatient cardiac follow-up to be arranged
- Will sign off, recall if needed
Original Note:
Today's Communication / Plan
-
continue amiodarone. QTc stable
continue eliquis
ambulate with PT
will arrange OP cardiac follow up
Impression / Plan
-
Primary Technical Mgr: Dr. Roberts
Assessment:
Presentation with weakness, dizziness
GORDON
Atrial fibrillation with RVR, paroxysmal
Hypokalemia
Leukocytosis
PAF
Chronic OAC with eliquis
HTN
HLD
AI
Spinal stenosis s/p laminectomy 2012
History of kidney stone
Suspected low grade glioma by MRI
[facility]
ECHO 11/13/23: EF 60%, no regional wall motion abnormalities, mild concentric LVH, mild AR, trace TR, PAP 30 mmHg
ECHO 07/06/25: EF 60 to 65%, mild to moderate concentric LVH, mild AR, mild TR, PAP 36 mmHg
Plan:
-Patient presented with weakness and feeling SOB and dizzy with ambulation. Noted to be in afib with RVR, which was paroxysmal
-was started on amiodarone 400mg TID and on review of tele has maintained SR since ~1600 07/06. QTc stable by 07/07 EKG, follow. would transition to 200mg BID for 4 weeks then decrease to 200mg daily upon DC
-continue eliquis
-echo with results as above, discussed with patient 07/07.
-Will ambulate patient with PT today and reassess symptoms of GORDON and dizziness
-also with knee pain and is for xray today
-will arrange OP cardiac follow up
-plan for SNF upon DC
-d/w nursing
Progress Note - Technical Mgr
Subjective
Date of Service: July 07, 2025
no symptoms at present
Objective
Labs:
07/07/25 04:57
07/07/25 04:57
Labs
Hgb 12.1 g/dL (13.0-18.0) L 07/07/25 04:57
Hct 36.0 % (39.0-52.0) L 07/07/25 04:57
Plt Count 167 10^3/uL (130-400) 07/07/25 04:57
PT 15.1 Sec (11.4-14.6) H 07/05/25 16:05
INR 1.16 07/05/25 16:05
APTT 28.4 Sec (23.4-35.0) 07/05/25 16:05
Sodium 140 mmol/L (135-145) 07/07/25 04:57
Potassium 3.4 mmol/L (3.5-5.1) L 07/07/25 04:57
BUN 19 mg/dl (9-20) 07/07/25 04:57
Creatinine 0.7 mg/dL (0.7-1.3) 07/07/25 04:57
Glucose 110 mg/dl (70-99) H 07/07/25 04:57
Troponins
07/05/25
17:49
Troponin I 0.021
Vital Signs and I&O:
Vital Signs
Temp Pulse Resp BP Pulse Ox
98.0 F 76 18 144/73 94
07/07/25 06:59 07/07/25 08:00 07/07/25 06:59 07/07/25 07:02 07/07/25 06:59
Vital Signs
Temp Pulse Resp BP Pulse Ox
98.0 F 76 18 144/73 94
07/07/25 06:59 07/07/25 08:00 07/07/25 06:59 07/07/25 07:02 07/07/25 06:59
Intake & Output
07/05/25 07/06/25 07/07/25 07/08/25
07:59 07:59 07:59 07:59
Intake Total 110 / 110
Output Total 600 / 600 700 / 700
Balance -600 / -600 -590 / -590
Physical Exam
Physical Exam
GEN: No distress, awake, alert, oriented x3
HEENT: supple, anicteric, mmm, eomi
LUNGS: CTA B/L, no wheezes/rales
CV: Reg, S1/S2, 1/6 syst LSB
ABD: soft, BS+, NT/ND
EXT: No cyanosis, clubbing, edema
NEURO: Gross non-focal
SKIN: Warm, pink, dry. No rash
[2025-07-07] MEDS: KCL 40 MEQ PO (15:24)
[2025-07-07] MEDS: TYLENOL 650 MG PO (20:44)
[2025-07-07] MEDS: FLOMAX 0.8 MG PO (22:22)
--- NOTE | 2025-07-07 22:45 | PTCARENOTE ---
Received pt at change of shift resting in bed. SR w/ 1st degree AVB, HR in the 70's. pt denies any CP. pt GORDON, sating 93%. Fall risk precautions maintained, bed alarm on and audible. Urinal within reach. Encouraged pt to call RN for assistance OOB.
Call ross within reach.
[2025-07-08] VITALS (9 sets, daily range): BP systolic 111–183; BP diastolic 48–102; PULSE 82–111; O2SAT 94; BMI 29.6
[2025-07-08 04:52] LABS: ALT (SGPT) 23 U/L (0-50); AST (SGOT) 29 U/L (17-59); Albumin 3.7 g/dl (3.5-5.0); Alkaline Phosphatase 83 U/L (38-126); Blood Urea Nitrogen 18 mg/dl (9-20); Calcium 9.6 mg/dl (8.4-10.2); Carbon Dioxide 26 mmol/L (22-30); Chloride 108 mmol/L (98-107); Estimated Creatinine Clearance 70 ml/min; Glucose 104 mg/dl (70-99); Potassium 3.6 mmol/L (3.5-5.1); Sodium 139 mmol/L (135-145); Total Protein 5.7 g/dl (6.3-8.2); eGFR > 60.00
[2025-07-08] MEDS: ZESTRIL 20 MG PO (08:37)
[2025-07-08] MEDS: PROSCAR 5 MG PO (08:37)
[2025-07-08] MEDS: PROTONIX 40 MG PO (08:37)
[2025-07-08] MEDS: PACERONE 400 MG PO (08:37)
[2025-07-08] MEDS: BUSPAR 15 MG PO (08:38)
[2025-07-08] MEDS: ELIQUIS 5 MG PO (08:39)
[2025-07-08] MEDS: NORVASC 5 MG PO (08:39)
[2025-07-08] MEDS: ZOLOFT 100 MG PO (08:39)
[2025-07-08] MEDS: LIPITOR 20 MG PO (08:39)
--- NOTE | 2025-07-08 10:48 | W.PN.HOSP.TC ---
Today's Communication/Plan
-
Discharge today
Assessment / Plan
Assessment / Plan
Physical Exam
General: Comfortable and Conversant
HEENT: Normocephalic. Moist mucous membranes
Respiratory: Clear to Auscultation Bilaterally
Cardiac: S1/S2 and Regular Rhythm
GI: Soft and Non Tender. Positive bowel sounds.
Musculoskeletal: No Cyanosis and No Edema. RT Knee flexion and extension intact. RT knee area without any erythema or swelling. RLE neurovascularly intact distally.
Skin: Warm and Dry
Neuro: Awake, Alert, Oriented and Nonfocal/grossly intact
Psych: Calm
Assessment/Plan
84 y/o male past medical history of atrial fibrillation on Eliquis, hypertension, hyperlipidemia, anxiety, and BPH who presents with generalized weakness, fatigue and dyspnea on exertion. Patient reports he was attempting to ambulate with his
rollator, and started to feel a little dizzy and shortness of breath. He sat down to rest and symptoms improved. He states he didn't eat anything on 07/05/25. He came to the emergency department for evaluation due to the symptoms. While in the
emergency department patient was found to have episodes of atrial fibrillation with rapid ventricular response. He was started on Cardizem in the ED and had several periods of sinus rhythm - but repeatedly returned to A-Fib with variable rates.
Presentation with weakness
Paroxysmal Atrial Fibrillation - patient with episodes of rapid ventricular response in the emergency department
Atrial tachycardia episodes
-Patient placed on Cardizem drip - During my evaluation patient in normal sinus rhythm however previous attempt to stop Cardizem drip failed
-Cardizem drip recently weaned off
-Continue Eliquis
-Continue newly started Amiodarone: patient was started on Amiodarone 400mg TID and has maintained sinus rhythm since 07/06/25 -- on discharge, transition Amiodarone to 200mg BID for 4 weeks,
then decrease to Amiodarone 200mg daily (I confirmed this discharge regimen with Mara Max, cardiology Physician Staff Electrical Engineer)
-Continue to monitor QTc
-Consult Cardiology
-Continue to monitor in IVU
Prolonged QTc
-Avoid QT prolonging medications
-Replace electrolytes
-Recheck ECG
Hypokalemia
-Replace potassium
-Magnesium normal
Significant R knee pain during ambulation on 07/06/25
-Patient stated history of fall with prolonged hyperflexion event
-Right knee x-ray
-Curbside consulted (not full/formal consult) orthopedic surgeon Dr. Nicolas (orthopedics) -- patient can be followed up outpatient
Essential Hypertension
-Continue amlodipine and lisinopril with hold parameters
Hyperlipidemia
-Continue atorvastatin
Anxiety / Depression
-Continue buspirone and sertraline
Benign Prostatic Hyperplasia
-Continue finasteride and tamsulosin
History of laminectomy
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
Mild aortic regurgitation
DVT Prophylaxis: Eliquis
Disposition: [facility]
Code Status: Full Code
More than 30 minutes spent in discharge including
Final examination of the patient
Summarizing hospital stay
Instructions for continuing care to all relevant caregivers
Preparation of discharge records, prescriptions, and referral forms
Total time spent (in minutes): 37
Anticipated Discharge: Today
Subjective/Interval History
-
Date of Service: July 08, 2025
Patient was seen and examined. He denied any new complaints or symptoms. He denied any chest pain or shortness of breath.
Objective Data
-
Labs:
Laboratory Results
07/08/25
03:03
Sodium 139
Potassium 3.6
Chloride 108 H
Carbon Dioxide 26
BUN 18
Creatinine 0.8
Glucose 104 H
Calcium 9.6
Total Bilirubin 0.7
AST 29
ALT 23
Alkaline Phosphatase 83
Vital Signs:
Vital Signs
Temp Pulse Resp BP Pulse Ox
98.1 F 84 22 183/102 98
07/08/25 08:11 07/08/25 08:16 07/08/25 08:11 07/08/25 08:37 07/08/25 08:29
I&O
07/07/25 07/08/25 07/09/25
06:59 06:59 06:59
Intake Total 110 / 110 480 / 480
Output Total 550 / 550 975 / 975 450 / 450
Balance -440 / -440 -495 / -495 -450 / -450
--- NOTE | 2025-07-08 13:48 | W.DCSUMMARY ---
Discharge Summary
Discharge Data
Date of Admission: 07/05/25
Date of Discharge: 07/08/25
Total time spent discharging patient (in min): 37
-
Pending Results: No
Hospital Course
84 y/o male with past medical history significant for atrial fibrillation, hypertension and benign prostatic hyperplasia, who presented to [facility] ED complaining of generalized weakness, fatigue and dyspnea with activity. Patient had no specific chest
pain, palpitations, etc. Patient was noted in be in atrial fibrillation with heart rates into the 150s beats per minute. He was started on Cardizem Drip and had several periods of sinus rhythm - but repeatedly returned to atrial fibrillation with
variable rates. Cardiology was consulted. Patient was started on Amiodarone and Cardizem Drip was weaned off. Patient converted to sinus rhythm. Cardiology noted that patient has paroxysmal atrial fibrillation/flutter/atrial tachycardia.
Echocardiogram from 07/06/25 showed EF 60 to 65%, mild to moderate concentric LVH, mild AR, mild TR and PAP 36 mmHg. Patient was noted to have right knee pain with ambulation, but no erythema, swelling or restricted range of motion of the right knee.
Cardiology recommended that on discharge, patient be discharged with Amiodarone 200 mg twice daily for 4 weeks then decrease to 200 mg daily.
Discharge Plan
-
Patient Disposition: Fdc/SNF
Discharge Diagnosis/Procedures: Paroxysmal Atrial Fibrillation - patient with episodes of rapid ventricular response in the emergency department
Atrial tachycardia episodes
Prolonged QTc
Hypokalemia
Significant right knee pain during ambulation on 07/06/25
Essential Hypertension
Hyperlipidemia
Anxiety/Depression
Benign Prostatic Hyperplasia
History of laminectomy
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
Mild aortic regurgitation

Right Knee X-Ray (as per radiologist's report):
'FINDINGS:
There is diffuse osteopenia. No fractures, dislocations, or suspicious bony abnormalities. There is mild narrowing of the joint space within the medial tibiofemoral compartment. No significant joint effusion. Mild calcified plaque within the distal
SFA and proximal popliteal arteries.
IMPRESSION:
No acute radiographic abnormality.
Mild joint space narrowing/degenerative change within the medial tibial femoral compartment of the right knee. No joint effusion.'

Chest X-Ray (as per radiologist's report):
'COMPARISON: Previous chest radiograph of January 18, 2011. CT of the abdomen and pelvis from November 15, 2021.
FINDINGS: The lungs appear hypoinflated. Best seen on the lateral view, subtle linear densities within the inferior lungs, which is likely linear atelectasis.
No convincing evidence for pneumonia.
Cardiac silhouette size appears within normal limits with no evidence for pulmonary edema or pleural effusion.
IMPRESSION:
The lungs appear hypoinflated.
Subtle linear densities within the inferior lungs, which is likely linear atelectasis.'

Renal Ultrasound (as per radiologist's report):
'FINDINGS:
RIGHT kidney: Size measures 13.0 x 5.2 x 6.6 cm. No hydronephrosis or nephrolithiasis. Again seen are several exophytic cysts, the largest measuring 5.0 cm within the lower pole.
LEFT kidney: Size measures 12.5 x 5.3 x 6.5 cm. No hydronephrosis. Mild cortical thinning. Contains a couple of cysts, the larger measuring 2.6 cm within the upper pole. Probable 3 mm calculus within the lower pole.
BLADDER: Again seen is a large calculus measuring up to 4 cm. No masses or areas of abnormal bladder wall thickening. Only the left ureteral jet was visualized. Bladder post void residual of 67 cc.
Mildly enlarged prostate gland measuring 3.2 x 2.5 x 2.9 cm.
IMPRESSION:
Redemonstration of 4 cm bladder calculus.
Bilateral renal cysts, detailed above. Probable 3 mm calculus within the lower pole of the left kidney.
Additional findings above.'
Condition: Good
Diet: Low Fat, Low Cholesterol and Low Sodium
Driving Restrictions: No driving
Blood Work: CBC, CMP, Phosphorus and Magnesium in 1 to 3 days
Other Services: PT and OT
Activity Restrictions/Additional Instructions:
Monitor closely EKG QTc outpatient given patient is on Amiodarone and Sertraline
Referrals:
Yecenia Rodriguez PA-C [Specified Professional Personl, Cardiology] - 08/11/25 2:00 pm
Referral Note: You have a cardiology follow-up appointment at the [place] office with Dr. Roberts's physician social and human services assistant, Yecenia. Please call with questions
Viraj Keen PA-C [Specified Professional Personl, Orthopedics] - in less than 1 week
Referral Note: Right knee pain
Yuriy Lopez MD [Family Provider, Internal Medicine]
Additional Discharge Medication Instructions: Continue Amiodarone 200 mg twice daily for 4 weeks then, after 4 weeks, decrease to Amiodarone 200 mg daily
Prescriptions:
New
amiodarone [Pacerone] 200 mg Tablet
200 mg PO BID 28 Days Qty: 56 0RF
Rx Instructions:
After 4 weeks of 200 mg twice daily Amiodarone, switch to 200 mg daily Amiodarone
Continued
sertraline 100 MG tablet
100 mg PO BID
atorvastatin 20 MG tablet
20 mg PO DAILY
omeprazole 20 MG capsule,delayed release(DR/EC)
20 mg PO DAILY
tamsulosin 0.4 mg Capsule
0.8 mg PO HS
buspirone 15 mg Tablet
15 mg PO BID
lisinopril 20 mg Tablet
20 mg PO DAILY
Eliquis 5 mg Tablet
5 mg PO BID
amlodipine [Norvasc] 5 mg Tablet
5 mg PO DAILY
finasteride 5 mg Tablet
5 mg PO DAILY
Discharge Orders:
Discharge Patient (As Directed); Ordered 07/08/25
Ordered By: Binh Golden
Care Plan Goals
Care Plan Goals:
Problem: Readiness for enhanced knowledge related to diagnosis and treatment plan
Goal: Understand your diagnosis and treatment plan needs, including medications if applicable.
Instructions: Know your diagnosis, underlying causes and treatment plan options, including medications if applicable. Consult with your health care team to learn about your diagnosis and treatment plan, including medications if applicable.
Discharge Date and Time
Discharge Date/Time: 07/08/25 15:07
Print Language: CAMBODIAN
[2025-07-08] MEDS: PREVNAR 20 0.5 ML IM (13:57)
[2025-07-08] MEDS: TYLENOL 650 MG PO (14:30)
--- NOTE | 2025-07-08 15:03 | PTCARENOTE ---
Pt seen by , PT and OT. Pt very deconditioned, he c/o some dizziness after working with PT, SBP 183 prior to morning medications, down 111-116 mid morning with PT. Dizziness resolved once pt was back in bed, aware. Plan to
continuos pt's rehab at [facility]. Telemetry and IV device removed. Report called to Sola at [facility] at 14:50. Pt left in wheelchair van at 15:00.
== END 2025-07-08 15:07 | DRG 309 ==
LOC: IVU 21:17
PROVIDERS: Emergency Medicine; Physician Assistant Medical; ADMITTING PHYSICIAN Hospitalist; ATTENDING PHYSICIAN Hospitalist; EMERGENCY PHYSICIAN Emergency Medicine; FAMILY PHYSICIAN Internal Medicine; OTHER PHYSICIAN Internal Medicine Cardiovascular Disease
DX: I48.0 Paroxysmal atrial fibrillation (principal); C71.9 Malignant neoplasm of brain, unspecified; I10 Essential (primary) hypertension; F41.9 Anxiety disorder, unspecified; F32.A Depression, unspecified; N40.0 Benign prostatic hyperplasia without lower urinary tract symptoms; E87.6 Hypokalemia; R62.7 Adult failure to thrive; R53.1 Weakness; I06.1 Rheumatic aortic insufficiency; I47.19 Other supraventricular tachycardia; D72.829 Elevated white blood cell count, unspecified; E78.00 Pure hypercholesterolemia, unspecified; G89.29 Other chronic pain; Z79.899 Other long term (current) drug therapy; Z79.01 Long term (current) use of anticoagulants
CPT/HCPCS: 71046; 73564; 80048; 80053; 81003; 81015; 83735; 83880; 84443; 84484; 85025; 85027; 85610; 85730; 90677; 93005; 93306; 96374; 96376; 97116; 97163; 97167; 97530; 97535; 99285; G0009

== ENCOUNTER → 2025-07-09 10:32 | Outpatient (REF) | payer OTHER, SELFPAY ==
[2025-07-09 11:20] LABS: Hematocrit 36.1 % (39.0-52.0); Hemoglobin 11.7 g/dL (13.0-18.0); Mean Corp Hgb Conc. 32.4 g/dL (33.0-37.0); Mean Corpuscular Volume 90.0 fL (80.0-94.0); Platelet Count 176 10^3/uL (130-400); Red Cell Dist. Width 14.6 % (11.5-14.5)
[2025-07-09 11:38] LABS: ALT (SGPT) 27 U/L (0-50); AST (SGOT) 28 U/L (17-59); Albumin 3.8 g/dl (3.5-5.0); Alkaline Phosphatase 80 U/L (38-126); Blood Urea Nitrogen 20 mg/dl (9-20); Calcium 9.6 mg/dl (8.4-10.2); Carbon Dioxide 29 mmol/L (22-30); Chloride 109 mmol/L (98-107); Glucose 105 mg/dl (70-99); Magnesium 2.0 mg/dl (1.6-2.3); Potassium 3.9 mmol/L (3.5-5.1); Sodium 142 mmol/L (135-145); Total Protein 6.0 g/dl (6.3-8.2); eGFR > 60.00
== END ==
LOC: OLABP 10:32
PROVIDERS: ATTENDING PHYSICIAN Family Medicine
DX: I48.91 Unspecified atrial fibrillation (principal); E78.5 Hyperlipidemia, unspecified; F41.9 Anxiety disorder, unspecified; M48.00 Spinal stenosis, site unspecified; N40.0 Benign prostatic hyperplasia without lower urinary tract symptoms; C71.9 Malignant neoplasm of brain, unspecified; R62.7 Adult failure to thrive; G89.29 Other chronic pain
CPT/HCPCS: 36415; 80053; 83735; 84100; 85027